=== PATIENT | male | born 1955 | race Caucasian/White ===

== ENCOUNTER 2022-12-05 21:46 | Emergency (ER) | payer BC ==
[2022-12-05] MEDS ORDERED: Boostrix 0.5 ML (Tdap) VIAL (>/=7 yrs of age) ONE (21:53)
[2022-12-05] MEDS ORDERED: CEFAZOLIN 2 GM VIAL ONE (21:53)
[2022-12-05] MEDS ORDERED: Morphine 4 MG/ML VIAL ONE (21:59)
== END 2022-12-06 01:41 | disposition short-term general hospital (02) ==
LOC: ERS 21:46
DX: S82.54XA Nondisplaced fracture of medial malleolus of right tibia, initial encounter for closed fracture (principal); I10 Essential (primary) hypertension; W33.01XA Accidental discharge of shotgun, initial encounter; Z23 Encounter for immunization
CPT/HCPCS: 90471; 90715; 96365; 96374; G0390; J2270

== ENCOUNTER 2024-05-04 15:18 | Outpatient (CLI) | payer MEDICARE | END 2024-05-04 15:19 | disposition home or self-care (01) | LOC: SCSMRI 15:18 | PROVIDERS: ATTEND Orthopaedic Surgery | DX: S53.21XA Traumatic rupture of right radial collateral ligament, initial encounter (principal); M19.041 Primary osteoarthritis, right hand; M25.441 Effusion, right hand ==